=== PATIENT | female | born 1970 | race Caucasian/White ===

== ENCOUNTER 2016-10-15 07:43 | Outpatient (CLI) | payer OTHER ==
[~2016-10-15 07:43] MED LIST: LANS15CA5 PO
== END 2016-10-15 20:04 | disposition home or self-care (01) ==
LOC: SUS 07:43
PROVIDERS: ATTEND Internal Medicine
DX: R10.2 Pelvic and perineal pain (principal)
CPT/HCPCS: 76830-TC; 76857

== ENCOUNTER 2016-10-24 09:10 | Outpatient (CLI) | payer OTHER | END 2016-10-24 19:25 | disposition home or self-care (01) | LOC: SCT 09:10 | PROVIDERS: ATTEND Otolaryngology | DX: J32.9 Chronic sinusitis, unspecified (principal); J34.2 Deviated nasal septum | CPT/HCPCS: 70486-TC ==

== ENCOUNTER 2016-12-23 20:14 | Emergency (ER) | payer OTHER ==
[~2016-12-23] VITALS: Ht 157.5 cm; Wt 59.0 kg
[2016-12-23 20:21] VITALS: BP_SYST 118
[2016-12-23] MEDS ORDERED: chlorproMAZINE HCL 50 MG/ 2 ML AMP IVP ONE (21:30)
[2016-12-23] MEDS ORDERED: DIPHENHYDRAMINE INJ 50 MG/ML VIAL IVP ONE (21:30)
[2016-12-23] MEDS ORDERED: NACL 0.9% 1,000 ML IV ONE (21:30)
[2016-12-23 21:43] LABS: BILIRUBIN,URINE NEGATIVE (NEGATIVE); BLOOD, URINE NEGATIVE (NEGATIVE); CLARITY/URINE CLEAR (CLEAR); COLOR,URINE YELLOW (YELLOW); GLUCOSE,URINE NEGATIVE (NEGATIVE); KETONES,URINE NEGATIVE (NEGATIVE); LEUKOCYTE ESTERASE ,URINE NEGATIVE (NEGATIVE); NITRITE, URINE NEGATIVE (NEGATIVE); PH,URINE 5.5 (5.0-8.0); PROTEIN URINE NEGATIVE (NEGATIVE); UROBILINOGEN,URINE 0.2 (0.2-1.0)
[2016-12-23] MEDS ORDERED: MORPHINE SULFATE 10 MG/ML VIAL IVP ONE (22:00)
[2016-12-23 22:58] VITALS: BP_SYST 118
== END 2016-12-23 22:58 | disposition home or self-care (01) ==
LOC: SED 20:14
DX: G43.909 Migraine, unspecified, not intractable, without status migrainosus (principal); G89.29 Other chronic pain; R52 Pain, unspecified; J45.909 Unspecified asthma, uncomplicated; E11.9 Type 2 diabetes mellitus without complications; K21.9 Gastro-esophageal reflux disease without esophagitis; I10 Essential (primary) hypertension; Z88.6 Allergy status to analgesic agent; Z88.1 Allergy status to other antibiotic agents
CPT/HCPCS: 81003; 81025; 96361; 96374; 96375; 99284; J1200; J2270; J3230; J7030

== ENCOUNTER → 2017-07-23 | Emergency (ER) | payer OTHER ==
[~2017-07-23] VITALS: Ht 157.5 cm; Wt 54.4 kg
[~2017-07-23] MED LIST changes: +DIPHENHYDRAMINE INJ 50 MG/ML VIAL IM ONE; +MORPHINE SULFATE 10 MG/ML VIAL IM ONE
[2017-07-23 16:00] VITALS: BP_SYST 124
--- NOTE | 2017-07-23 16:45 | NUR ---
Patient to ER bed H1 to gown for evaluation. Side rails up. Report given to Ben CHING.
--- NOTE | 2017-07-23 16:48 | NUR ---
Pt ambulated into ED c/o 05/06 constant general pain s/p fall 4 days ago. Pt states she was walking when her leg gave out and fell on friday. Pt reports 05/06 pain on L hip, back, and "all over body." Pt takes morphine for fibromyalgia and neuropathy, but it has not relieved the pain. Pt is speaking in full sentences, breathing even and unlabored. Pt keeps eyes closed during interview for long periods of time, pt states she has migraines. No other injuries/complaints per pt/noted.
--- NOTE | 2017-07-23 16:57 | NUR ---
OMAR Shipley [employer] CLERK at bedside examining patient.
== END | disposition still patient (30) ==
LOC: SED 15:55
DX: F07.81 Postconcussional syndrome (principal); G89.29 Other chronic pain; M79.1 Myalgia; R03.0 Elevated blood-pressure reading, without diagnosis of hypertension; G43.909 Migraine, unspecified, not intractable, without status migrainosus; E11.40 Type 2 diabetes mellitus with diabetic neuropathy, unspecified; K21.9 Gastro-esophageal reflux disease without esophagitis; I10 Essential (primary) hypertension; J45.909 Unspecified asthma, uncomplicated; Z98.51 Tubal ligation status; Z88.1 Allergy status to other antibiotic agents
CPT/HCPCS: 96372; 99284; J1200; J2270

== ENCOUNTER 2017-12-01 12:14 | Emergency (ER) | payer OTHER ==
[~2017-12-01] VITALS: Ht 157.5 cm; Wt 56.7 kg
[~2017-12-01 12:14] MED LIST changes: -DIPHENHYDRAMINE INJ 50 MG/ML VIAL IM ONE; -MORPHINE SULFATE 10 MG/ML VIAL IM ONE
[2017-12-01 12:19] VITALS: BP_SYST 127
[2017-12-01] MEDS ORDERED: MORPHINE SULFATE 10 MG/ML VIAL IM ONE (13:00)
[2017-12-01 14:13] VITALS: BP_SYST 131
== END 2017-12-01 14:13 | disposition home or self-care (01) ==
LOC: SED 12:14
DX: S70.02XA Contusion of left hip, initial encounter (principal); S80.02XA Contusion of left knee, initial encounter; J45.909 Unspecified asthma, uncomplicated; K21.9 Gastro-esophageal reflux disease without esophagitis; I10 Essential (primary) hypertension; G43.909 Migraine, unspecified, not intractable, without status migrainosus; E11.40 Type 2 diabetes mellitus with diabetic neuropathy, unspecified; Z88.1 Allergy status to other antibiotic agents; W01.0XXA Fall on same level from slipping, tripping and stumbling without subsequent striking against object, initial encounter; Y93.89 Activity, other specified; Y92.89 Other specified places as the place of occurrence of the external cause; Y99.8 Other external cause status
CPT/HCPCS: 73521; 73560; 96372; 99284; J2270

== ENCOUNTER 2018-07-07 14:10 | Outpatient (CLI) | payer OTHER ==
[~2018-07-07 14:10] MED LIST changes: +LANS15CA14 PO; -LANS15CA5 PO
== END 2018-07-07 19:28 | disposition home or self-care (01) ==
LOC: SRD 14:10
PROVIDERS: ATTEND Internal Medicine
DX: M17.0 Bilateral primary osteoarthritis of knee (principal); M81.0 Age-related osteoporosis without current pathological fracture

== ENCOUNTER 2018-10-02 12:39 | Outpatient (CLI) | payer OTHER | END 2018-10-02 19:32 | disposition home or self-care (01) | LOC: SUS 12:39 | PROVIDERS: ATTEND Internal Medicine | DX: N60.01 Solitary cyst of right breast (principal) | CPT/HCPCS: 76642 ==

== ENCOUNTER 2019-04-27 19:57 | Emergency (ER) | payer OTHER ==
[~2019-04-27] VITALS: Ht 154.9 cm; Wt 54.4 kg
[2019-04-27 20:19] VITALS: BP_SYST 121
--- NOTE | 2019-04-28 00:16 | NUR ---
Called pt 3x, no answer
--- NOTE | 2019-04-28 00:16 | NUR ---
Patient left without being seen. No further treatment done. ER MD aware
== END 2019-04-28 00:16 | disposition left against medical advice (07) ==
LOC: SED 19:57
DX: R07.89 Other chest pain (principal); Z53.21 Procedure and treatment not carried out due to patient leaving prior to being seen by health care provider

== ENCOUNTER 2022-05-18 15:32 | Emergency (ER) | payer OTHER ==
[~2022-05-18] VITALS: Ht 157.5 cm; Wt 54.4 kg
[2022-05-18 15:35] VITALS: BP_SYST 128
--- NOTE | 2022-05-18 15:35 | NUR ---
TRIAGED AND BROUGHT BACK TO [facility] BED
[2022-05-18] MEDS ORDERED: LIDOCAINE 1% 10 MG/ML, 20 ML MDV INJ ONE (16:00)
[2022-05-18] MEDS ORDERED: BACITRACIN 1 GM OINT TP ONE (16:00)
--- NOTE | 2022-05-18 16:07 | NUR ---
DR PATIÑO AT BEDSIDE FOR PROCEDURE
--- NOTE | 2022-05-18 16:22 | NUR ---
DRESSING APPLIED BY SHAW GÓMEZ.
--- NOTE | 2022-05-18 16:23 | NUR ---
PT LEFT AFTER DRESSING WAS APPLIED. PT DID NOT WAIT FOR DISCHARGE PAPERWORK.
[2022-05-18] MEDS ORDERED: NAPR-690 PO (16:28)
--- NOTE | 2022-05-18 16:28 | NUR ---
Cleaned wound w. 0.9% N.S. & Iodine.
--- NOTE | 2022-05-18 16:29 | NUR ---
Dressed wound with Basitrasin, Non-adherent gauze & tubular gauze.
--- NOTE | 2022-05-18 16:31 | NUR ---
Patient given written and verbal discharge instructions and verbalizes understanding. ER MD discussed with patient the results and treatment provided. Patient in stable condition. ID arm band removed Rx of NAPROXEN given. Patient educated on pain management and to follow up with PMD. Pain Scale REFUSES TO ANSWER. Opportunity for questions provided and answered. Medication side effect fact sheet provided. PT LEFT BUT SPOUSE STAYED TO TAKE PAPERWORK
--- NOTE | 2022-05-18 16:32 | NUR ---
While I was dressing her wound, ag was calling Dr. Celaya "Sima broderick, doesn't care about people's pain. This is the reason why we hate doctors. 'cause them asholes don't care." Privately and with a very low tone I said: " Madam, please show some respect." She answered screaming and asked me "explain how was she being disrespecful?" I proceeded to explain to her how to take care of her dressing at home but she wanted me to engage in a very disrespectful conversation, so I said: "Excuse me madam, but I am done with that and I am not saying anything else about it." After this, the patient started screaming at me, as soon as I was done with the dressing she got up and walked away without singing her discharge papers. I called her family members to give them the discharge papers & prescription instructions.
== END 2022-05-18 16:31 | disposition home or self-care (01) ==
LOC: SED 15:32
DX: S61.211A Laceration without foreign body of left index finger without damage to nail, initial encounter (principal); J45.909 Unspecified asthma, uncomplicated; E11.9 Type 2 diabetes mellitus without complications; K21.9 Gastro-esophageal reflux disease without esophagitis; I10 Essential (primary) hypertension; Z88.1 Allergy status to other antibiotic agents; Z79.899 Other long term (current) drug therapy; W27.4XXA Contact with kitchen utensil, initial encounter; Y93.89 Activity, other specified; Y92.89 Other specified places as the place of occurrence of the external cause; Y99.8 Other external cause status
CPT/HCPCS: 99282; 12001; J2001

== ENCOUNTER → 2022-10-10 | Outpatient (CLI) | payer OTHER ==
[~2022-10-10] MED LIST changes: +NAPR-690 PO
== END | disposition home or self-care (01) ==
LOC: SMI 12:40
DX: M47.22 Other spondylosis with radiculopathy, cervical region (principal); M48.02 Spinal stenosis, cervical region; M50.323 Other cervical disc degeneration at C6-C7 level
CPT/HCPCS: 72141